=== PATIENT | male | born 1990 | race Two or more races ===

== ENCOUNTER 2016-11-03 07:26 | Emergency (ER) | payer OTHER ==
[~2016-11-03] VITALS: Ht 177.8 cm; Wt 75.0 kg
[2016-11-03] MEDS ORDERED: LEVETIRACETAM 1,000 MG in SODIUM CHLORIDE 0.9% 100 ML IV ONE (07:45)
[2016-11-03 08:30] LABS: BASOPHILS % 0.4 % (0.0-2.0); EOSINOPHILS % 6.8 % (0.0-5.0); HEMATOCRIT. 40.7 % (42.0-52.0); HEMOGLOBIN. 13.8 g/dL (14.0-18.0); LYMPHOCYTES % 33.4 % (20.0-50.0); MEAN CORPUSCULAR HEMOGLOBIN 29.8 pg (28.0-32.0); MEAN CORPUSCULAR VOLUME 87.8 fL (80.0-94.0); MEAN PLATELET VOLUME 7.9 fl (7.4-10.4); MONOCYTES % 8.3 % (2.0-8.0); NEUTROPHILS % 51.1 % (40.0-76.0); PLATELET 182 x1000/uL (130-400); RED BLOOD CELL COUNT 4.63 mill/uL (4.7-6.1); RED CELL DISTRIBUTION WIDTH 13.9 % (11.6-14.6)
[2016-11-03] MEDS ORDERED: ACETAMINOPHEN WITH CODEINE 300/30MG TABLET PO ONE (08:30)
[2016-11-03] MEDS ORDERED: IBUPROFEN 800MG TABLET PO ONE (08:30)
[2016-11-03 08:34] LABS: CARBON DIOXIDE 28 mEq/L (21-32); CHLORIDE 103 mEq/L (98-107)
[2016-11-03 09:42] VITALS: BP 104/58
== END 2016-11-03 10:18 | disposition home or self-care (01) ==
LOC: ER 07:31
DX: R56.9 Unspecified convulsions (principal); M25.512 Pain in left shoulder; Z91.14 Patient's other noncompliance with medication regimen
CPT/HCPCS: 36415; 73030; 80053; 85025; 96365; 99285; J1953; Z7610; J7050

== ENCOUNTER 2017-01-14 07:10 | Inpatient (IN) | payer OTHER ==
[~2017-01-14] VITALS: Ht 167.6 cm; Wt 74.4 kg
[2017-01-14] MEDS ORDERED: ONDANSETRON HCL 4MG/2ML VIAL IV ONE (07:30)
[2017-01-14] MEDS ORDERED: LEVETIRACETAM 500MG PREMIX 100 ML IV ONE (07:30)
[2017-01-14 08:00] LABS: BASOPHILS % 0.9 % (0.0-2.0); HEMATOCRIT. 42.6 % (42.0-52.0); HEMOGLOBIN. 14.1 g/dL (14.0-18.0); LYMPHOCYTES % 39.2 % (20.0-50.0); MEAN CORPUSCULAR HEMOGLOBIN 28.8 pg (28.0-32.0); MEAN CORPUSCULAR VOLUME 87.1 fL (80.0-94.0); MEAN PLATELET VOLUME 7.9 fl (7.4-10.4); MONOCYTES % 10.4 % (2.0-8.0); NEUTROPHILS % 44.5 % (40.0-76.0); PLATELET 176 x1000/uL (130-400); RED BLOOD CELL COUNT 4.89 mill/uL (4.7-6.1); RED CELL DISTRIBUTION WIDTH 13.7 % (11.6-14.6)
[2017-01-14 08:07] LABS: PARTIAL THROMBOPLASTIN TIME 23.1 sec (23.4-31.0); PROTHROMBIN TIME 10.8 sec (9.4-11.6)
[2017-01-14 08:11] LABS: CARBON DIOXIDE 30 mEq/L (21-32); CHLORIDE 104 mEq/L (98-107); ETHANOL BLOOD < 10 mg/dL
[2017-01-14 10:05] VITALS: BP_SYST 107; BP_DIAS 62; BP_DIAS 67
[2017-01-14] MEDS ORDERED: KEPP500 PO (10:46)
[2017-01-14 12:00] VITALS: BP 112/64
[2017-01-14] MEDS ORDERED: HYDROCODONE/ACETAMINOPHEN 5/325MG TABLET PO PRN (13:45)
[2017-01-14] MEDS ORDERED: ACETAMINOPHEN 650MG/20.3ML UDC PO PRN (13:45)
[2017-01-14] MEDS ORDERED: LORAZEPAM 2MG/ML CPJ IV PRN (13:45)
[2017-01-14 16:00] VITALS: BP 97/65
[2017-01-14] MEDS ORDERED: LEVETIRACETAM 500MG TABLET PO SCH ×2 (21:00)
== END 2017-01-14 18:35 | disposition left against medical advice (07) | DRG 53 ==
LOC: ER 07:22 → ENRESERV 09:26 → 7WST 09:27
PROVIDERS: ADMIT Internal Medicine; ATTEND Internal Medicine
DX: G40.89 Other seizures (principal); M25.512 Pain in left shoulder; Z53.21 Procedure and treatment not carried out due to patient leaving prior to being seen by health care provider; Z82.49 Family history of ischemic heart disease and other diseases of the circulatory system
CPT/HCPCS: 36415; 70450; 70551; 73030; 80048; 85025; 85610; 85730; 96365; 96375; 99291; G0482; J1953; J2405

== ENCOUNTER 2020-09-16 10:38 | Emergency (ER) | payer MEDICAID, OTHER ==
[~2020-09-16] VITALS: Ht 172.7 cm; Wt 78.0 kg
[~2020-09-16 10:38] MED LIST: KEPP500 PO
[2020-09-16] MEDS ORDERED: KETOROLAC 30MG/ML VIAL IV STA (10:55)
[2020-09-16] MEDS ORDERED: LEVETIRACETAM 1000MG PREMIX 100 ML IV ONE (11:00)
[2020-09-16 11:17] LABS: BASOPHILS % 1.2 % (0.0-2.0); EOSINOPHILS % 5.8 % (0.0-5.0); HEMATOCRIT. 42.9 % (42.0-52.0); HEMOGLOBIN. 14.3 g/dL (14.0-18.0); MEAN CORPUSCULAR HEMOGLOBIN 30.8 pg (28.0-32.0); MEAN CORPUSCULAR VOLUME 92.6 fL (80.0-94.0); MEAN PLATELET VOLUME 7.6 fl (7.4-10.4); MONOCYTES % 8.8 % (2.0-8.0); NEUTROPHILS % 49.2 % (40.0-76.0); PLATELET 224 x1000/uL (130-400); RED BLOOD CELL COUNT 4.63 mill/uL (4.7-6.1); RED CELL DISTRIBUTION WIDTH 14.3 % (11.6-14.6)
[2020-09-16 11:23] LABS: CHLORIDE 106 mEq/L (98-107)
[2020-09-16 11:27] LABS: ETHANOL BLOOD < 10 mg/dL
[2020-09-16] MEDS ORDERED: KEPP500 PO (12:27)
[2020-09-16 12:55] VITALS: BP 120/71
== END 2020-09-16 13:10 | disposition home or self-care (01) ==
LOC: ER 10:51
DX: R56.9 Unspecified convulsions (principal)
CPT/HCPCS: 36415; 80053; 80320; 82962; 85025; 96374; 96375; 99284; J1885; J1953; Z7610; G0480

== ENCOUNTER 2022-02-07 11:45 | Emergency (ER) | payer MEDICAID ==
[~2022-02-07] VITALS: Ht 182.9 cm; Wt 82.0 kg
[2022-02-07] MEDS ORDERED: LEVETIRACETAM 1000MG PREMIX 100 ML IV ONE (12:00)
[2022-02-07 12:46] LABS: CHLORIDE 95 mEq/L (98-107)
[2022-02-07 12:47] LABS: BASOPHILS % 0.6 % (0.0-2.0); EOSINOPHILS % 0.3 % (0.0-5.0); HEMATOCRIT. 43.2 % (42.0-52.0); LYMPHOCYTES % 28.3 % (20.0-50.0); MEAN CORPUSCULAR HEMOGLOBIN 30.8 pg (28.0-32.0); MEAN PLATELET VOLUME 8.2 fl (7.4-10.4); MONOCYTES % 7.7 % (2.0-8.0); NEUTROPHILS % 63.1 % (40.0-76.0); PLATELET 194 x1000/uL (130-400); RED BLOOD CELL COUNT 4.55 mill/uL (4.7-6.1)
[2022-02-07 12:54] LABS: ETHANOL BLOOD < 10 mg/dL
[2022-02-07] MEDS ORDERED: ACETAMINOPHEN 325MG TABLET PO ONE (13:45)
[2022-02-07] MEDS ORDERED: LACTATED RINGERS 1,000 ML IV STA (14:00)
[2022-02-07 15:15] VITALS: BP 110/82
[2022-02-08] MEDS ORDERED: LACTATED RINGERS 1,000 ML IV STA (14:00)
== END 2022-02-07 16:08 | disposition left against medical advice (07) ==
LOC: ER 11:45
DX: G40.909 Epilepsy, unspecified, not intractable, without status epilepticus (principal)
CPT/HCPCS: 36415; 80053; 80320; 85025; 96361; 96365; 99284; J1953; J7120; G0480

== ENCOUNTER 2023-01-10 16:43 | Emergency (ER) | payer MEDICAID ==
[~2023-01-10] VITALS: Ht 170.2 cm; Wt 80.0 kg
[2023-01-10 16:45] VITALS: BP 122/86; PULSE 82; RESP 18; TEMP 98.3; O2SAT 100
== END 2023-01-10 16:45 | disposition left against medical advice (07) ==
LOC: ER 16:43
DX: R56.9 Unspecified convulsions (principal); Z53.21 Procedure and treatment not carried out due to patient leaving prior to being seen by health care provider
CPT/HCPCS: 99281

== ENCOUNTER 2024-04-22 03:09 | Emergency (ER) | payer MEDICAID ==
[~2024-04-22] VITALS: Ht 165.1 cm; Wt 71.0 kg
[2024-04-22 03:23] VITALS: O2SAT 100
[2024-04-22] MEDS: MORPHINE SULFATE 4 MG/ML INJ (FOR IV/IM USE) IV ONE (04:49)
[2024-04-22] MEDS: ACETAMINOPHEN 1000MG/100ML 100 ML IV ONE (04:50)
[2024-04-22] MEDS: ONDANSETRON HCL 4MG/2ML INJ IV ONE (04:50)
[2024-04-22 07:46] VITALS: TEMP 36.61404
[2024-04-22] MEDS: MORPHINE SULFATE 2 MG/ML INJ (NOT FOR IM USE) IV NR (07:56)
[2024-04-22] MEDS ORDERED: OXYC-100 MT (08:10)
[2024-04-22 08:47] VITALS: BP 129/93; PULSE 80; RESP 17; O2SAT 96
== END 2024-04-22 08:49 | disposition home or self-care (01) ==
LOC: ER 03:28
DX: R68.84 Jaw pain (principal); Z00.00 Encounter for general adult medical examination without abnormal findings; Z86.59 Personal history of other mental and behavioral disorders; Y04.0XXA Assault by unarmed brawl or fight, initial encounter; Y93.89 Activity, other specified; Y92.89 Other specified places as the place of occurrence of the external cause; Y99.8 Other external cause status
CPT/HCPCS: 70450; 70486; 96365; 96366; 96375; 96376; 99285; J2405; J2270 ×2; Z7610; J0131